=== PATIENT | male | born 1955 | race Caucasian/White ===

== ENCOUNTER 2020-06-26 15:26 | Outpatient (REF) | payer BC, SELFPAY ==
[2020-06-26 16:54] LABS: Hematocrit 43.3 % (42-52); Hemoglobin 14.7 g/dl (14.0-18.0); Mean Corpuscular HGB Conc 33.9 g/dl (31.0-36.0); Mean Corpuscular Hemoglobin 31.5 pg (27.0-33.0); Mean Corpuscular Volume 92.9 fL (80-98); Mean Platelet Volume 10.1 fL (9.4-12.4); Platelet Count 256 X10*3/uL (160-400); Red Blood Count 4.66 X10*6/uL (4.60-5.80)
[2020-06-26 17:19] LABS: Cholesterol 156 mg/dL; HDL Cholesterol 43 mg/dL; LDL Cholesterol Calculated 96 mg/dl; Triglycerides 89 mg/dL
[2020-06-26 17:22] LABS: Alanine Aminotransferase 28 U/L (0-40); Albumin Level 4.3 g/dL (3.5-5.0); Alkaline Phosphatase 76 U/L (39-117); Anion Gap 12 (12-20); Aspartate Amino Transferase 23 U/L (5-37); Bilirubin Direct 0.2 mg/dL (0.0-0.5); Bilirubin Total 0.3 mg/dL (0.0-1.0); Blood Urea Nitrogen 25 mg/dL (9-16); Calcium 9.6 mg/dL (8.4-10.2); Carbon Dioxide 28 mmol/L (22-29); Chloride 104 mmol/L (96-108); Estimated Glomerular Filt Rate > 60; Glucose Random 90 mg/dL (60-115); Potassium 4.3 mmol/l (3.3-5.1); Sodium 140 mmol/L (135-145); Total Protein 6.6 g/dL (6.5-8.0)
[2020-06-26 17:37] LABS: SARS COV2 PCR INHOUSE NEGATIVE (Negative)
== END 2020-06-26 15:27 | disposition home or self-care (01) ==
LOC: HO.LAB 15:26
PROVIDERS: PCP Internal Medicine; Visit Provider Internal Medicine
DX: Z00.00 Encounter for general adult medical examination without abnormal findings (principal); Z11.9 Encounter for screening for infectious and parasitic diseases, unspecified; Z20.828 Contact with and (suspected) exposure to other viral communicable diseases
CPT/HCPCS: 36415; 80048; 80061; 80076; 85027; 87635

== ENCOUNTER 2021-06-27 12:11 | Outpatient (REF) | payer MEDICARE, SELFPAY ==
[2021-06-27 13:42] LABS: Hematocrit 40.7 % (42-52); Hemoglobin 14.1 g/dl (14.0-18.0); Mean Corpuscular HGB Conc 34.6 g/dl (31.0-36.0); Mean Corpuscular Volume 92.5 fL (80-98); Mean Platelet Volume 10.2 fL (9.4-12.4); Platelet Count 235 X10*3/uL (160-400); Red Cell Distribution Width 12.7 % (11.0-16.0); White Blood Count 6.5 X10*3/uL (4.8-10.8)
[2021-06-27 13:46] LABS: Appearance Urine CLEAR; Color Urine YELLOW; Glucose Urine UA NEG (NEG); Leukocyte Esterase Urine NEG (NEG); Nitrite Urine NEG (NEG); Specific Gravity - Urine 1.025 (1.005-1.025); Urine Blood NEG (NEG); Urine Ketones NEG (NEG); Urine Protein NEG (NEG-TRACE)
[2021-06-27 13:53] LABS: Alanine Aminotransferase 40 U/L (0-40); Albumin Level 4.2 g/dL (3.5-5.0); Alkaline Phosphatase 87 U/L (39-117); Anion Gap 11 (12-20); Aspartate Amino Transferase 33 U/L (5-37); Bilirubin Direct 0.2 mg/dL (0.0-0.5); Bilirubin Total 0.5 mg/dL (0.0-1.0); Blood Urea Nitrogen 20 mg/dL (9-16); Calcium 9.2 mg/dL (8.4-10.2); Carbon Dioxide 28 mmol/L (22-29); Chloride 106 mmol/L (96-108); Cholesterol 142 mg/dL; Estimated Glomerular Filt Rate 59; Glucose Random 104 mg/dL (60-115); HDL Cholesterol 38 mg/dL; LDL Cholesterol Calculated 78 mg/dl; Potassium 4.3 mmol/L (3.3-5.1); Sodium 141 mmol/L (135-145); Total Protein 6.7 g/dL (6.5-8.0); Triglycerides 130 mg/dL
[2021-06-27 14:13] LABS: Prostate Specific Antigen Scr 0.74 ng/mL (<0.05-4.0); Thyroid Stimulating Hormone 0.56 uIU/mL (0.32-4.0)
== END 2021-06-27 12:12 | disposition home or self-care (01) ==
LOC: HO.LAB 12:11
PROVIDERS: PCP Internal Medicine; Visit Provider Internal Medicine
DX: Z00.00 Encounter for general adult medical examination without abnormal findings (principal); Z12.5 Encounter for screening for malignant neoplasm of prostate
CPT/HCPCS: 36415; 80048; 80061; 80076; 81003; 84153; 84443; 85027

== ENCOUNTER 2022-07-14 08:36 | Outpatient (REF) | payer MEDICARE, SELFPAY ==
[2022-07-14 09:09] LABS: Hematocrit 43.8 % (42.0-52.0); Hemoglobin 14.8 g/dl (14.0-18.0); Mean Corpuscular HGB Conc 33.8 g/dl (31.0-36.0); Mean Corpuscular Hemoglobin 31.4 pg (27.0-33.0); Mean Corpuscular Volume 92.8 fL (80.0-98.0); Mean Platelet Volume 9.8 fL (9.4-12.4); Platelet Count 249 X10*3/uL (160-400); Red Blood Count 4.72 X10*6/uL (4.60-5.80); Red Cell Distribution Width 12.2 % (11.0-16.0)
[2022-07-14 09:27] LABS: Alanine Aminotransferase 22 U/L (0-40); Albumin Level 4.3 g/dL (3.5-5.0); Alkaline Phosphatase 90 U/L (39-117); Anion Gap 14 (12-20); Aspartate Amino Transferase 20 U/L (5-37); Bilirubin Direct 0.2 mg/dL (0.0-0.5); Bilirubin Total 0.7 mg/dL (0.0-1.0); Blood Urea Nitrogen 16 mg/dL (9-16); Calcium 9.3 mg/dL (8.4-10.2); Carbon Dioxide 26 mmol/L (22-29); Chloride 106 mmol/L (96-108); Cholesterol 159 mg/dL; Estimated Glomerular Filt Rate > 60; Glucose Random 82 mg/dL (60-115); HDL Cholesterol 40 mg/dL; LDL Cholesterol Calculated 80 mg/dl; Potassium 4.4 mmol/L (3.3-5.1); Sodium 142 mmol/L (135-145); Total Protein 6.9 g/dL (6.5-8.0); Triglycerides 197 mg/dL
[2022-07-14 09:46] LABS: Appearance Urine Clear; Color Urine Yellow; Glucose Urine UA Negative (Negative); Leukocyte Esterase Urine Negative (Negative); Nitrite Urine Negative (Negative); Urine Blood Negative (Negative); Urine Ketones Negative (Negative); Urine Protein Negative (Neg-Trace)
[2022-07-14 09:48] LABS: Prostate Specific Antigen Scr 1.01 ng/mL (<0.05-4.0); Thyroid Stimulating Hormone 0.84 uIU/mL (0.32-4.0)
== END 2022-07-14 08:37 | disposition home or self-care (01) ==
LOC: HO.LAB 08:36
PROVIDERS: PCP Internal Medicine; Visit Provider Internal Medicine
DX: Z00.00 Encounter for general adult medical examination without abnormal findings (principal); Z12.5 Encounter for screening for malignant neoplasm of prostate
CPT/HCPCS: 36415; 80048; 80061; 80076; 81003; 84153; 84443; 85027

== ENCOUNTER 2023-07-23 08:34 | Outpatient (AMB) | payer MEDICARE, SELFPAY ==
--- NOTE | 2023-07-23 08:22 | MHC.PC.OV ---
Vital Signs 07/23/23 08:23 Height 5 ft 9 in Weight 222 lb BMI 32.8 BP 150/88 H Blood Pressure Location Lt brachial Position Sitting Pulse 78 Pulse Source Pulse Oximeter Pulse Oximetry (%) 98 Oxygen Delivery Method Room Air Intake Visit Reasons: Annual Physical Allergies No Known Allergies Allergy (Verified 07/23/23 08:55) Medication List - Last Reconciled 07/23/23 by Lavon Gtz MD enalapril maleate 20 mg (2 x 10 mg) PO DAILY Tobacco use date assessed: 07/23/23 Fall risk assessment: No Falls in past year Last assessed Fall Risk: 07/23/23 Dental Screening Dental Screen Date: 07/23/23 Did you have a dental visit in the last 12 months?: Yes Did you have a dental problem in the last 6 months where you did not have access to dental care?: No Was dental information given to patient?: Patient has dentist HPI Annual Physical HPI Details 67-year-old male presents to the office requesting an annual physical. [facility] Medical History (Updated 07/23/23 @ 09:04 by Lavon Gtz MD) Obesity (BMI 30.0-34.9) Essential hypertension Surgical History History of urinary retention History of colonoscopy Family History Father Cancer Brother Hodgkins disease Mother No problems noted. Social History Housing: House Alcohol intake: never Patient Tobacco Use Status: Never used Tobacco e-Cigarette/Vaping Use: Never Used Second Hand Smoke Exposure: No service: No Current occupational status: retired Cognitive needs: No Hearing needs: No Vision needs: Yes Questionnaire PHQ-9 Over the last 2 weeks, how often have you been bothered by any of the following problems? 1. Little interest or pleasure in doing things: not at all 2. Feeling down, depressed, or hopeless: not at all 3. Trouble falling or staying asleep, or sleeping too much: not at all 4. Feeling tired or having little energy: not at all 5. Poor appetite or overeating: not at all 6. Feeling bad about yourself - or that you are a failure or have let yourself or your family down: not at all 7. Trouble concentrating on things, such as reading the newspaper or watching television: not at all 8. Moving or speaking so slowly that other people could have noticed. Or the opposite - being so fidgety or restless that you have been moving around a lot more than usual: not at all 9. Thoughts that you would be better off or of hurting yourself in some way: not at all Total score: 0 Depression Screening Interpretation: Negative Depression Screening Done: Yes Source: Developed by Drs. Christopher Ojeda, Alena Aponte, Fabian Leigh and colleagues, with an educational kalpana from [employer]. Thrive Questionnaire Date Thrive assessed: 07/23/23 I am a: Patient What is your living situation today?: I have a steady place to live Within the past 12 months, did the food you bought not last and you didn't have the money to get more?: Never true Within the past 12 months, did you worry whether your food would run out before you got money to buy more?: Never true Do you have trouble paying for medicines?: No Do you have trouble getting transportation to medical appointments?: No Do you have trouble paying your heating and electricity bill?: No Do you have trouble taking care of your child, family member or friend?: No Do you have trouble with day-to-day activities such as bathing, preparing meals, shopping, managing finances, etc.?: No Are you currently unemployed and looking for a job?: No Are you interested in more education?: No Currently or been in a relationship where the following occur: no concerns reported AUDIT C Alcohol Use Questionnaire (AUDIT-C) 1. How often do you have a drink containing alcohol?: Never Total Score: 0 ORA-7 AMB Questionnaire ORA-7 Date ORA - 7 assessed: 07/23/23 Feeling nervous, anxious, or on edge: 0 = Not at all Not being able to stop or control worryin = Not at all Worrying too much about different things: 0 = Not at all Trouble relaxin = Not at all Being so restless that it is hard to sit still: 0 = Not at all Becoming easily annoyed or irritable: 0 = Not at all Feeling afraid as if something awful might happen: 0 = Not at all Total ORA-7 score (0-4 normal; 5-9 mild; 10-14 moderate; 15-21 severe): 0 Source: Developed by Drs. Christopher Ojeda, Alena Aponte, Fabian Leigh and colleagues, with an educational kalpana from [employer]. Physical exam (Primary Care) Vital Signs: Last Vital Signs Pulse 78 07/23/23 08:23 BP 150/88 H 07/23/23 08:23 Pulse Ox 98 07/23/23 08:23 Oxygen Delivery Method Room Air 07/23/23 08:23 Care Plan Goal for BP management: Elevated blood pressure noted. Medication added to the regimen. BMI result Body Mass Index 32.8 BMI Assessment/Plan discussion: High ( 1 lb per week weight loss suggested) BMI High, discussed plan: lifestyle, weight reduction and dietary Tobacco/Smoking Status: Tobacco use Status Tobacco use date assessed 07/23/23 07/23/23 08:34 Patient Tobacco Use Status Never used Tobacco 07/23/23 08:28 e-Cigarette/Vaping Use Never Used 07/23/23 08:28 PHQ-9: PHQ-9 Score PHQ-9: Total score 0 07/23/23 08:34 Depression Screening Interpretation: Negative Thrive Assessment: Date of Thrive Assessment Date Thrive assessed 07/23/23 07/23/23 08:34 Currently or been in a relationship where the following occur: no concerns reported Advance Care Planning discussion: Exists, not on file Date of discussion: 07/23/23 Who was present: Patient Forms completed: Health Care Proxy Time spent: 1-15 minutes, not on file Const General: cooperative and healthy appearing Nutritional Appearance: well nourished Orientation/consciousness: patient oriented x3 Limitations: no limitations HENMT Head: Yes normal to inspection Eyes General: appearance normal, both eyes and all related structures Neck Neck: Yes normal visual inspection Chest Chest palpation & inspection: normal palpation of entire chest wall Resp Effort & Inspection: normal respiratory effort Neuro General: patient oriented x3 Assessment and Plan Assessment & Plan (1) Essential hypertension: Code(s): I10 - Essential (primary) hypertension Plan: Hydrochlorothiazide added to the regimen. Blood work is ordered. Will call with results. Counseling on the importance of diet and exercise done. (2) Encounter for general adult medical examination without abnormal findings: Comment: Will call with results of blood work. Patient was advised the importance of diet and exercise. Code(s): Z00.00 - Encounter for general adult medical examination without abnormal findings (3) Obesity (BMI 30.0-34.9): Code(s): E66.9 - Obesity, unspecified Orders: Orders Lipid Panel Today I10 - Essential (primary) hypertension Liver Panel Today I10 - Essential (primary) hypertension UA and rflx microscopic Today I10 - Essential (primary) hypertension Basic Metabolic Panel Today I10 - Essential (primary) hypertension Complete Blood Count no Diff Today I10 - Essential (primary) hypertension Thyroid Stimulating Hormone Today I10 - Essential (primary) hypertension Prostate Specific Antigen Scr Today I10 - Essential (primary) hypertension Coding Level of Care Code Est Pt Prev Care >65y(20157) Diagnoses Essential hypertension I10 Encounter for general adult medical examination without abnormal findings Z00.00 Obesity (BMI 30.0-34.9) E66.9 Additional Codes Vital Signs *Quality* - Advance Care Planning discussion: Exists, not on file ([id number]) Vital Signs *Quality* - Time spent: 1-15 minutes, not on file ([id number])
[2023-07-23 08:23] VITALS: BP 150/88; PULSE 78; O2SAT 98; BMI 32.8
== END 2023-07-23 08:54 | disposition home or self-care (01) ==
PROVIDERS: PCP Internal Medicine; Visit Provider Internal Medicine
DX: Z00.00 Encounter for general adult medical examination without abnormal findings (principal); I10 Essential (primary) hypertension; E66.9 Obesity, unspecified; Z68.32 Body mass index [BMI] 32.0-32.9, adult
CPT/HCPCS: 1124F; 99397

== ENCOUNTER 2023-07-24 07:29 | Outpatient (REF) | payer MEDICARE, SELFPAY ==
[2023-07-24 10:35] LABS: Appearance Urine Clear; Color Urine Yellow; Glucose Urine UA Negative (Negative); Leukocyte Esterase Urine Negative (Negative); Nitrite Urine Negative (Negative); Specific Gravity - Urine 1.025 (1.005-1.025); Urine Blood Negative (Negative); Urine Ketones Trace mg/dL (Negative); Urine Protein Negative (Neg-Trace)
[2023-07-24 10:42] LABS: Hematocrit 43.5 % (42.0-52.0); Hemoglobin 14.7 g/dl (14.0-18.0); Mean Corpuscular HGB Conc 33.8 g/dl (31.0-36.0); Mean Corpuscular Hemoglobin 30.9 pg (27.0-33.0); Mean Corpuscular Volume 91.6 fL (80.0-98.0); Mean Platelet Volume 10.9 fL (9.4-12.4); Platelet Count 193 X10*3/uL (160-400); Red Blood Count 4.75 X10*6/uL (4.60-5.80); Red Cell Distribution Width 12.3 % (11.0-16.0); White Blood Count 6.8 X10*3/uL (4.8-10.8)
[2023-07-24 11:08] LABS: Alanine Aminotransferase 28 U/L (0-40); Albumin Level 4.3 g/dL (3.5-5.0); Alkaline Phosphatase 96 U/L (39-117); Anion Gap 8 (12-20); Aspartate Amino Transferase 36 U/L (5-37); Bilirubin Direct 0.3 mg/dL (0.0-0.5); Bilirubin Total 0.8 mg/dL (0.0-1.0); Blood Urea Nitrogen 23 mg/dL (9-16); Calcium 9.4 mg/dL (8.4-10.2); Carbon Dioxide 31 mmol/L (22-29); Chloride 105 mmol/L (96-108); Cholesterol 132 mg/dL (<200); Estimated Glomerular Filt Rate > 60; Glucose Random 89 mg/dL (60-115); HDL Cholesterol 35 mg/dL (>40); LDL Cholesterol Calculated 85 mg/dL (<100); Potassium 4.1 mmol/L (3.3-5.1); Sodium 140 mmol/L (135-145); Total Protein 6.9 g/dL (6.5-8.0); Triglycerides 64 mg/dL (<150)
[2023-07-24 11:22] LABS: Prostate Specific Antigen Scr 0.96 ng/mL (<0.05-4.0)
== END 2023-07-24 07:30 | disposition home or self-care (01) ==
LOC: HO.10HDL 07:29
PROVIDERS: Visit Provider Internal Medicine
DX: Z12.5 Encounter for screening for malignant neoplasm of prostate (principal); I10 Essential (primary) hypertension
CPT/HCPCS: 36415; 80048; 80061; 80076; 81003; 84153; 84443; 85027

== ENCOUNTER 2024-07-28 09:28 | Outpatient (AMB) | payer MEDICARE, SELFPAY ==
--- NOTE | 2024-07-28 09:38 | A.OFFPC_ITS ---
Vital Signs 07/28/24 09:40 Height 5 ft 9 in Weight 228 lb 8 oz BMI 33.7 BP 130/80 Blood Pressure Location Lt brachial Position Sitting Pulse 60 Pulse Source Pulse Oximeter Pulse Oximetry (%) 95 Oxygen Delivery Method Room Air Intake Visit Reasons: Annual Exam Intake Note: Patient is here today for a physical. 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: Not Required per policy Accompanied by: Self / Same As Patient Allergies No Known Allergies Allergy (Verified 08/04/24 16:21) Medication List - Last Reconciled 08/04/24 by Lavon Gtz MD enalapril maleate 20 mg (2 x 10 mg) PO DAILY hydrochlorothiazide 25 mg PO DAILY Tobacco use date assessed: 07/28/24 Fall risk assessment: No Falls in past year Last assessed Fall Risk: 07/28/24 Dental Screening Dental Screen Date: 07/28/24 Did you have a dental visit in the last 12 months?: Yes Did you have a dental problem in the last 6 months where you did not have access to dental care?: No Was dental information given to patient?: Patient has dentist HPI Annual Exam HPI Details 68-year-old male presents to the office requesting an annual physical. [facility] Medical History Obesity (BMI 30.0-34.9) Essential hypertension Surgical History History of urinary retention History of colonoscopy Family History Father Cancer Brother Hodgkins disease Mother No problems noted. Social History Housing: House Alcohol intake: never Patient Tobacco Use Status: Never used Tobacco e-Cigarette/Vaping Use: Never Used Second Hand Smoke Exposure: No service: No Current occupational status: retired Cognitive needs: No Hearing needs: No Vision needs: Yes (Glasses) Questionnaire PHQ-9 Over the last 2 weeks, how often have you been bothered by any of the following problems? 1. Little interest or pleasure in doing things: not at all 2. Feeling down, depressed, or hopeless: not at all 3. Trouble falling or staying asleep, or sleeping too much: not at all 4. Feeling tired or having little energy: several days 5. Poor appetite or overeating: not at all 6. Feeling bad about yourself - or that you are a failure or have let yourself or your family down: not at all 7. Trouble concentrating on things, such as reading the newspaper or watching television: not at all 8. Moving or speaking so slowly that other people could have noticed. Or the opposite - being so fidgety or restless that you have been moving around a lot more than usual: not at all 9. Thoughts that you would be better off or of hurting yourself in some way: not at all Total score: 1 Depression Screening Interpretation: Positive Depression Screening Done: Yes Source: Developed by Drs. Christopher Ojeda, Alena Aponte, Fabian Leigh and colleagues, with an educational kalpana from [employer]. Thrive Questionnaire Date Thrive assessed: 07/28/24 I am a: Patient What is your living situation today?: I have a steady place to live Within the past 12 months, did the food you bought not last and you didn't have the money to get more?: Never true Within the past 12 months, did you worry whether your food would run out before you got money to buy more?: Never true Do you have trouble paying for medicines?: No Do you have trouble getting transportation to medical appointments?: No Do you have trouble paying your heating and electricity bill?: No Do you have trouble taking care of your child, family member or friend?: I choose not to answer this question Do you have trouble with day-to-day activities such as bathing, preparing meals, shopping, managing finances, etc.?: No Are you currently unemployed and looking for a job?: I choose not to answer this question Are you interested in more education?: No Please select the resources that you would like help with: None Currently or been in a relationship where the following occur: I choose not to answer THRIVE Score: 0 AUDIT C Alcohol Use Questionnaire (AUDIT-C) 1. How often do you have a drink containing alcohol?: Never Total Score: 0 ORA-7 AMB Questionnaire ORA-7 Date ORA - 7 assessed: 07/28/24 Feeling nervous, anxious, or on edge: 0 = Not at all Not being able to stop or control worryin = Not at all Worrying too much about different things: 0 = Not at all Trouble relaxin = Not at all Being so restless that it is hard to sit still: 0 = Not at all Becoming easily annoyed or irritable: 0 = Not at all Feeling afraid as if something awful might happen: 0 = Not at all Total ORA-7 score (0-4 normal; 5-9 mild; 10-14 moderate; 15-21 severe): 0 Source: Developed by Drs. Christopher Ojeda, Alena Aponte, Fabian Leigh and colleagues, with an educational kalpana from [employer]. Physical exam (Primary Care) Vital Signs: Last Vital Signs Pulse 60 07/28/24 09:40 BP 130/80 07/28/24 09:40 Pulse Ox 95 07/28/24 09:40 Oxygen Delivery Method Room Air 07/28/24 09:40 BMI result Body Mass Index 33.7 Tobacco/Smoking Status: Tobacco use Status Tobacco use date assessed 07/28/24 07/28/24 09:45 Patient Tobacco Use Status Never used Tobacco 07/28/24 09:45 e-Cigarette/Vaping Use Never Used 07/28/24 09:45 PHQ-9: PHQ-9 Score PHQ-9: Total score 1 07/28/24 09:55 Depression Screening Interpretation: Positive Thrive Assessment: Date of Thrive Assessment Date Thrive assessed 07/28/24 07/28/24 09:45 Currently or been in a relationship where the following occur: I choose not to answer Const General: cooperative and healthy appearing Nutritional Appearance: well nourished Orientation/consciousness: patient oriented x3 Limitations: no limitations HENMT Head: Yes normal to inspection Eyes General: appearance normal, both eyes and all related structures Neck Neck: Yes normal visual inspection Chest Chest palpation & inspection: normal palpation of entire chest wall Resp Effort & Inspection: normal respiratory effort Neuro General: patient oriented x3 Office Procedures Flu Questionnaire Does the patient have a severe egg allergy?: No Does the patient have severe life threatening allergies?: No Does the patient have a fever or illness today?: No Has the patient ever had Guillain-Maxatawny Syndrome?: No Has the patient ever had any past reaction to a flu shot?: No Immunizations Fluarix Triv [id number] (PF) 45 mcg (15 mcg x 3)/0.5 mL IM syringe Performing Provider: Lavon Gtz MD [place] [facility] Administered by: Kathy Padilla LPN on 07/28/24 09:55 Dose Route Admin Location Dispensed Lot Number Expiration Date ND Offset Duplicating Machine Operator 0.5 mL IM Right Deltoid 0.5 mL [id number] 03/06/25 [id number] Pathagility VIS Given Date VIS Provided VIS Publication Date 07/28/24 Single Vaccine 21 Eligibility Eligibility Date Funding Source Not [facility] Eligible 07/28/24 Private Coding Level of Care Code Est Pt Prev Care >65y(74780) Diagnoses Essential hypertension I10 Obesity (BMI 30.0-34.9) E66.9 Encounter for general adult medical examination without abnormal findings Z00.00 Assessment & Plan Assessment & Plan (1) Essential hypertension: Code(s): I10 - Essential (primary) hypertension Category: Medical Plan: Blood pressure is in range. (2) Obesity (BMI 30.0-34.9): Code(s): E66.9 - Obesity, unspecified Category: Medical Plan: As below. (3) Encounter for general adult medical examination without abnormal findings: Comment: Will call with results of blood work. Patient was advised the importance of diet and exercise. Code(s): Z00.00 - Encounter for general adult medical examination without abnormal findings Category: Medical Plan: As in the comment section. Orders: Orders Influenza [id number] Immunization 07/28/24 Z23 - Encounter for immunization
[2024-07-28 09:40] VITALS: BP 130/80; PULSE 60; O2SAT 95; BMI 33.7
== END 2024-07-28 10:08 | disposition home or self-care (01) ==
PROVIDERS: PCP Internal Medicine; Visit Provider Internal Medicine
DX: Z00.00 Encounter for general adult medical examination without abnormal findings (principal); I10 Essential (primary) hypertension; E66.9 Obesity, unspecified; Z68.33 Body mass index [BMI] 33.0-33.9, adult

== ENCOUNTER → 2024-07-28 09:28 | Outpatient (BNVA) | payer MEDICARE, SELFPAY | PROVIDERS: PCP Internal Medicine; Visit Provider Internal Medicine | DX: Z00.00 Encounter for general adult medical examination without abnormal findings (principal); Z23 Encounter for immunization; I10 Essential (primary) hypertension; E66.9 Obesity, unspecified; Z68.33 Body mass index [BMI] 33.0-33.9, adult; Z71.3 Dietary counseling and surveillance | CPT/HCPCS: 90471; 90656; 96127; 99397 ==

== ENCOUNTER 2024-09-10 08:02 | Outpatient (REF) | payer SELFPAY ==
[2024-09-10 08:38] LABS: Hemoglobin 14.8 g/dl (14.0-18.0); Mean Corpuscular HGB Conc 34.4 g/dl (31.0-36.0); Mean Corpuscular Hemoglobin 31.8 pg (27.0-33.0); Mean Corpuscular Volume 92.3 fL (80.0-98.0); Mean Platelet Volume 9.6 fL (9.4-12.4); Platelet Count 252 X10*3/uL (160-400); Red Blood Count 4.66 X10*6/uL (4.60-5.80); Red Cell Distribution Width 12.8 % (11.0-16.0); White Blood Count 6.8 X10*3/uL (4.8-10.8)
[2024-09-10 09:16] LABS: Alanine Aminotransferase 28 U/L (0-40); Alkaline Phosphatase 57 U/L (39-117); Anion Gap 10 (12-20); Aspartate Amino Transferase 22 U/L (5-37); Bilirubin Direct 0.2 mg/dL (0.0-0.5); Bilirubin Total 0.7 mg/dL (0.0-1.0); Blood Urea Nitrogen 25 mg/dL (9-16); Calcium 9.3 mg/dL (8.4-10.2); Carbon Dioxide 31 mmol/L (22-29); Chloride 105 mmol/L (96-108); Cholesterol 140 mg/dL (<200); Estimated Glomerular Filt Rate 58; Glucose Random 99 mg/dL (60-115); HDL Cholesterol 38 mg/dL (>40); LDL Cholesterol Calculated 81 mg/dL (<100); Potassium 3.7 mmol/L (3.3-5.1); Sodium 142 mmol/L (135-145); Total Protein 6.7 g/dL (6.5-8.0); Triglycerides 108 mg/dL (<150)
[2024-09-10 09:30] LABS: Thyroid Stimulating Hormone 0.79 uIU/mL (0.32-4.0)
== END 2024-09-10 08:03 | disposition home or self-care (01) ==
LOC: HO.LAB 08:02
PROVIDERS: PCP Internal Medicine; Visit Provider Internal Medicine
DX: I10 Essential (primary) hypertension (principal)
CPT/HCPCS: 36415; 80048; 80061; 80076; 84443; 85027

== ENCOUNTER 2024-09-12 15:25 | Outpatient (REF) | payer BC, SELFPAY ==
[2024-09-12 15:32] LABS: Appearance Urine Clear; Color Urine Dark Yellow; Glucose Urine UA Negative (Negative); Leukocyte Esterase Urine Negative (Negative); Nitrite Urine Negative (Negative); PH 5.5 (5.0-9.0); Specific Gravity - Urine 1.025 (1.005-1.025); Urine Blood Negative (Negative); Urine Ketones Trace mg/dL (Negative); Urine Protein Negative (Neg-Trace)
== END 2024-09-12 15:26 | disposition home or self-care (01) ==
LOC: HO.LNP 15:25
PROVIDERS: Visit Provider Internal Medicine
DX: I10 Essential (primary) hypertension (principal)
CPT/HCPCS: 81003

== ENCOUNTER 2025-01-26 08:55 | Outpatient (AMB) | payer BC, SELFPAY ==
--- NOTE | 2025-01-26 09:08 | MHC.PC.OV ---
Vital Signs 01/26/25 09:09 Height 5 ft 9 in Weight 233 lb 2 oz BMI 34.4 BP 130/82 Blood Pressure Location Lt brachial Position Sitting Pulse 64 Pulse Source Pulse Oximeter Temp 96.9 F Temp Source Temporal Artery Scan Pulse Oximetry (%) 98 Oxygen Delivery Method Room Air Intake Visit Reasons: 6mth f/u Intake Note: Patient is here to follow up on HTN. 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 per policy Accompanied by: Self / Same As Patient Allergies No Known Allergies Allergy (Verified 01/26/25 09:09) Tobacco use date assessed: 01/26/25 Fall risk assessment: No Falls in past year Last assessed Fall Risk: 01/26/25 Dental Screening Dental Screen Date: 01/26/25 Did you have a dental visit in the last 12 months?: Yes Did you have a dental problem in the last 6 months where you did not have access to dental care?: No Was dental information given to patient?: Patient has dentist [facility] Medical History Obesity (BMI 30.0-34.9) Essential hypertension Surgical History History of urinary retention History of colonoscopy (~02/13/17) Family History Father Cancer Brother Hodgkins disease Mother No problems noted. Social History Housing: House Alcohol intake: never Patient Tobacco Use Status: Never used Tobacco e-Cigarette/Vaping Use: Never Used Second Hand Smoke Exposure: No service: No Current occupational status: retired Cognitive needs: No Hearing needs: No Vision needs: Yes (Glasses) Questionnaire PHQ-9 Over the last 2 weeks, how often have you been bothered by any of the following problems? 1. Little interest or pleasure in doing things: not at all 2. Feeling down, depressed, or hopeless: not at all 3. Trouble falling or staying asleep, or sleeping too much: not at all 4. Feeling tired or having little energy: not at all 5. Poor appetite or overeating: not at all 6. Feeling bad about yourself - or that you are a failure or have let yourself or your family down: not at all 7. Trouble concentrating on things, such as reading the newspaper or watching television: not at all 8. Moving or speaking so slowly that other people could have noticed. Or the opposite - being so fidgety or restless that you have been moving around a lot more than usual: not at all 9. Thoughts that you would be better off or of hurting yourself in some way: not at all Total score: 0 Depression Screening Interpretation: Negative Depression Screening Done: Yes Source: Developed by Drs. Christopher Ojeda, Alena Aponte, Fabian Leigh and colleagues, with an educational kalpana from [employer]. Thrive Questionnaire Date Thrive assessed: 01/26/25 I am a: Patient What is your living situation today?: I have a steady place to live Within the past 12 months, did the food you bought not last and you didn't have the money to get more?: Never true Within the past 12 months, did you worry whether your food would run out before you got money to buy more?: Never true Do you have trouble paying for medicines?: No Do you have trouble getting transportation to medical appointments?: No Do you have trouble paying your heating and electricity bill?: No Do you have trouble taking care of your child, family member or friend?: I choose not to answer this question Do you have trouble with day-to-day activities such as bathing, preparing meals, shopping, managing finances, etc.?: No Are you currently unemployed and looking for a job?: I choose not to answer this question Are you interested in more education?: No Please select the resources that you would like help with: None Currently or been in a relationship where the following occur: No concerns reported THRIVE Score: 0 AUDIT C Alcohol Use Questionnaire (AUDIT-C) 1. How often do you have a drink containing alcohol?: Never Total Score: 0 ORA-7 AMB Questionnaire ORA-7 Date ORA - 7 assessed: 01/26/25 Feeling nervous, anxious, or on edge: 0 = Not at all Not being able to stop or control worryin = Not at all Worrying too much about different things: 0 = Not at all Trouble relaxin = Not at all Being so restless that it is hard to sit still: 0 = Not at all Becoming easily annoyed or irritable: 0 = Not at all Feeling afraid as if something awful might happen: 0 = Not at all Total ORA-7 score (0-4 normal; 5-9 mild; 10-14 moderate; 15-21 severe): 0 Source: Developed by Drs. Christopher Ojeda, Alena Aponte, Fabian Leigh and colleagues, with an educational kalpana from [employer]. Physical exam (Primary Care) Vital Signs: Last Vital Signs Temp 96.9 F 01/26/25 09:09 Pulse 64 01/26/25 09:09 BP 130/82 01/26/25 09:09 Pulse Ox 98 01/26/25 09:09 Oxygen Delivery Method Room Air 01/26/25 09:09 BMI result Body Mass Index 34.4 Tobacco/Smoking Status: Tobacco use Status Tobacco use date assessed 01/26/25 01/26/25 09:14 Patient Tobacco Use Status Never used Tobacco 01/26/25 09:14 e-Cigarette/Vaping Use Never Used 01/26/25 09:14 PHQ-9: PHQ-9 Score PHQ-9: Total score 0 01/26/25 09:14 Depression Screening Interpretation: Negative Thrive Assessment: Date of Thrive Assessment Date Thrive assessed 01/26/25 01/26/25 09:14 Currently or been in a relationship where the following occur: No concerns reported Coding Level of Care Code Est Pt Level 4 (71939) Complex EM visit Add On G2211 Diagnoses Essential hypertension I10 Assessment & Plan Assessment & Plan (1) Essential hypertension: Code(s): I10 - Essential (primary) hypertension Category: Medical Plan: BP is in range. Continue current medications. Plan History of Present Illness The patient is a 69 year old male presenting for a wellness visit, focusing on screening for colon cancer. He prefers non-invasive testing methods due to potential risks associated with traditional colonoscopy, as noted during past procedures at ages 49 and 59. The patient has no family history of colorectal cancer and discussed using the Cologuard test for routine screening. Bijana, a trusted medical acquaintance, recommended this method, emphasizing ease and reduced risk. The patient reports having had cataract surgery on his left eye and expects a gradual progression that remains under control with slow bilateral development. He has been managed through specialized facilities in [place]. He is also monitored for possible glaucoma following an outpatient operation to prevent pressure-related complications, and reports no significant visual impairment at present. Hypertension is effectively managed through current medication protocols, with routine lab work confirming stable vitals. Financial implications of his treatment regimen were highlighted, particularly about skincare recommendations switching from cetalophil to a cost-effective equivalent, reflecting broader concerns of insurance coverage limitations for medications and treatments noted in his social interactions. Social History - Housing: Lives at home and was visited by healthcare personnel for routine checkups. - Insurance: Switched to [employer]; partial coverage noted, leading to [id number] expenses for blood work. - Activity/Mobility: Drives occasionally, avoids nighttime driving, indicating adequate though cautious engagement in daily activities. - Social Support: Interaction with healthcare providers outside the clinic setting for advice and monitoring, showcasing a support network. Review of Systems - Ophthalmologic: Reports slow-progressing cataracts, denies visual disturbances. - Cardiovascular: Denies shortness of breath, chest pain; reports maintaining controlled blood pressure. - Gastrointestinal: Denies abdominal pain or recent changes in bowel habits. - Neurologic: Reports spousal input regarding cognitive clarity, no substantial decline noted personally. - Dermatologic: Reports receipt of advice on skincare product choice for foot care. Physical Exam General: Cooperative and healthy appearing Nutritional Appearance: Well nourished Orientation/consciousness: Patient oriented x3 Limitations: No limitations Head: Normal to inspection General: Appearance normal, both eyes and all related structures Neck: Normal visual inspection Chest: Normal palpation of entire chest wall Respiratory: N ormal respiratory effort Neurology: Patient oriented x3, no halos or anything at all. Results - Labs: Routine blood work compliant with recent testing. - Tests: Colonoscopy (historical at age 49 and 59), Cologuard to be initiated. Plan 1. Cataract, Initial - Regular follow-up with ophthalmology to monitor progression. 2. Suspected Open-Angle Glaucoma - Continued monitoring and management as per specialist recommendations. 3. Essential Hypertension - Adherence to current medication; address any insurance coverage issues for future lab work. 4. Age-Related Macular Degeneration - Ongoing surveillance with resin shaver. 5. Cognitive Decline - Vigilant observation and reassessment; follow-up if any signs present. Discussion Notes During today's visit, I engaged in a discussion with the patient regarding his preference for non-invasive colon cancer screening, resulting in the selection of Cologuard as an appropriate alternative to colonoscopy. I advised the patient on the implications of switching dermatologic care products due to cost concerns. His financial issues surrounding the extent of insurance coverage were acknowledged, particularly with regards to ongoing blood work. We also addressed his ophthalmological history, including cataract intervention and potential glaucoma. Follow-up was set to monitor for potential cognitive impairments. Routine follow-ups with specialists were emphasized, with initiatives noted for health maintenance and insurance policy review, ensuring alignment with the patient's medical trajectory. Patient Instructions - Complete the Cologuard test as recommended. - Continue current hypertensive medication regimen. - Monitor any changes in vision and follow up with an resin shaver regularly. - Maintain regular blood work to ensure overall wellbeing. - Use [id number] alternatives for foot care as discussed. - Contact healthcare provider if experiencing new or worsening symptoms, particularly vision or cognition related. Orders: Referrals Cologuard Test Z12.11 - Encounter for screening for malignant neoplasm of colon
[2025-01-26 09:09] VITALS: BP 130/82; PULSE 64; TEMP 36.1; O2SAT 98; BMI 34.4
== END 2025-01-26 14:34 | disposition home or self-care (01) ==
LOC: HO.HMCH 08:56
PROVIDERS: PCP Internal Medicine; Visit Provider Internal Medicine
DX: I10 Essential (primary) hypertension (principal)

== ENCOUNTER → 2025-01-26 08:55 | Outpatient (BNVA) | payer BC, SELFPAY | PROVIDERS: PCP Internal Medicine; Visit Provider Internal Medicine ==

== ENCOUNTER 2025-08-10 09:05 | Outpatient (AMB) | payer BC, SELFPAY ==
[2025-08-10 09:19] VITALS: BP 120/66; PULSE 53; TEMP 36.2; O2SAT 92; BMI 33.8
--- NOTE | 2025-08-10 09:19 | A.OFFPC_ITS ---
Vital Signs 08/10/25 09:19 Height 5 ft 9 in Weight 229 lb 2 oz BMI 33.8 BP 120/66 Blood Pressure Location Lt brachial Position Sitting Pulse 53 Pulse Source Pulse Oximeter Temp 97.1 F Temp Source Temporal Artery Scan Pulse Oximetry (%) 92 Oxygen Delivery Method Room Air Intake Visit Reasons: Annual exam Intake Note: Patient is here today for a physical. Jd Edwards Consultant Required: No Grounds Maintenance Supervisor: Not Required per policy Accompanied by: Self / Same As Patient Allergies No Known Allergies Allergy (Verified 08/10/25 09:19) Tobacco use date assessed: 08/10/25 Fall risk assessment: No Falls in past year Last assessed Fall Risk: 08/10/25 Dental Screening Dental Screen Date: 01/26/25 HPI HPI Comments History of Present Illness Details History of Present Illness - The patient is a 69 year old male pres enting for an annual physical examination and blood pressure management. - He has a history of hypertension, whic h is managed with two medications, enalapril and hydrochlorothiazide, taken as three pills total, and his blood pressure is well-controlled. - He also takes a vitamin supplement and CoQ10. - The patient has cataracts that are slo w-growing and do not currently require surgery. - He previously underwent an eye procedu re for a drainage issue. - For health maintenance, his colon [facility] screening with a stool-based test was negative. - His last blood work was in September and was negative. - Regarding his weight, he reports a cur rent weight of 226 pounds and has recently started a diet program involving five small meals a day with the goal of reaching an ideal weight of 190 pounds. - He remains physically active with [employer], bike riding, and [employer]. Social History - Employment: The patient is retired. - Exercise: He is active with [employer], bike riding, and shoveling snow. - Nutrition: The patient recently starte d a diet program consisting of up to five small meals a day to facilitate weight loss. Results - Screening tests: A previously complete d stool-based colon cancer screening was negative. - Labs: Previous blood work from September was all negative. [facility] Medical History Obesity (BMI 30.0-34.9) Essential hypertension Surgical History History of urinary retention History of colonoscopy (~02/13/17) Family History Father Cancer Brother Hodgkins disease Mother No problems noted. Social History Housing: House Alcohol intake: never Patient Tobacco Use Status: Never used Tobacco e-Cigarette/Vaping Use: Never Used Second Hand Smoke Exposure: No service: No Current occupational status: retired Cognitive needs: No Hearing needs: No Vision needs: Yes (Glasses) Questionnaire Thrive Questionnaire Date Thrive assessed: 01/26/25 I am a: Patient What is your living situation today?: I have a steady place to live Within the past 12 months, did the food you bought not last and you didn't have the money to get more?: Never true Within the past 12 months, did you worry whether your food would run out before you got money to buy more?: Never true Do you have trouble paying for medicines?: No Do you have trouble getting transportation to medical appointments?: No Do you have trouble paying your heating and electricity bill?: No Do you have trouble taking care of your child, family member or friend?: I choose not to answer this question Do you have trouble with day-to-day activities such as bathing, preparing meals, shopping, managing finances, etc.?: No Are you currently unemployed and looking for a job?: I choose not to answer this question Are you interested in more education?: No Please select the resources that you would like help with: None Currently or been in a relationship where the following occur: No concerns reported THRIVE Score: 0 ORA-7 AMB Questionnaire ORA-7 Date ORA - 7 assessed: 01/26/25 Source: Developed by Drs. Christopher Ojeda, Alena Aponte, Fabian Leigh and colleagues, with an educational kalpana from [facility] Review of Systems Narrative Review of Systems - Eyes: Reports having slow-growing cataracts. - Neurological: Reports having shaky hands but denies having Parkinson's d isease. - Gastrointestinal: Denies abdominal pain. Physical exam (Primary Care) Vital Signs: Last Vital Signs Temp 97.1 F 08/10/25 09:19 Pulse 53 08/10/25 09:19 BP 120/66 08/10/25 09:19 Pulse Ox 92 08/10/25 09:19 Oxygen Delivery Method Room Air 08/10/25 09:19 BMI result Body Mass Index 33.8 Tobacco/Smoking Status: Tobacco use Status Tobacco use date assessed 08/10/25 08/10/25 09:25 Patient Tobacco Use Status Never used Tobacco 08/10/25 09:25 e-Cigarette/Vaping Use Never Used 08/10/25 09:25 Thrive Assessment: Date of Thrive Assessment Date Thrive assessed 01/26/25 08/10/25 09:25 Currently or been in a relationship where the following occur: No concerns reported Narrative Physical Exam General: Appearance normal, both eyes and all related structures Nutritional Appearance: Well nourished, current weight 230 lbs, ideal body weight around 190 lbs Orientation/consciousness: Patient oriented x3 Limitations: No limitations Head: Normal to inspection Neck: Normal visual inspection Chest: Normal palpation of entire chest wall Respiratory: Normal respiratory effort Neurology: Patient oriented x3, hands are shaky but no Parkinson's Office Procedures Flu Questionnaire Does the patient have a severe egg allergy?: No Does the patient have severe life threatening allergies?: No Does the patient have a fever or illness today?: No Has the patient ever had Guillain-[place] Syndrome?: No Has the patient ever had any past reaction to a flu shot?: No Immunizations Fluarix [id number] (PF) 45 mcg (15 mcg x 3)/0.5 mL IM syringe Performing Provider: Lavon Gtz MD [facility] [place] [facility] Administered by: Kathy Padilla LPN on 08/10/25 09:56 Dose Route Admin Location Dispensed Lot Number Expiration Date [facility] Account Support Manager 0.5 mL IM Right Deltoid 0.5 mL [id number] 03/06/26 [id number] [employer] Pump [employer] VIS Given Date VIS Provided VIS Publication Date 08/10/25 Single Vaccine 24 Eligibility Eligibility Date Funding Source Not [facility] Eligible 08/10/25 Private Coding Level of Care Code Est Pt Prev Care >65y(28386) Complex visit Add On G2211 Diagnoses Essential hypertension I10 Annual physical exam Z00.00 Assessment & Plan Assessment & Plan (1) Essential hypertension: Code(s): I10 - Essential (primary) hypertension Category: Medical (2) Annual physical exam: Code(s): Z00.00 - Encounter for general adult medical examination without abnormal findings Plan Plan - Hypertension: Continue current medications, including enalapril and hydrochlorothiazide, at the same dosage, as his blood pressure is well controlled. - Health Maintenance: Administer influenza vaccine in the office today. - Diagnostics: Order fasting lab work; the order is electronic and the patient can go to the lab facility in [place] or [place]. - Follow-up: Schedule a follow-up visit in six months. Discussion Notes I advised the patient to continue his current blood pressure medications as his readings are well-controlled. We discussed his lifestyle, including his physical activities and new diet plan for weight management. I informed him that I will place an electronic order for fasting blood work, which he can get done at a local lab. The patient consented to receiving the flu shot during today's visit. A follow-up is scheduled in six months. Patient Instructions - Continue taking your blood pressure medications as you currently do. - You will receive a flu shot today before you leave. - Please go for fasting blood work; you should not eat or drink anything except water after midnight the night before the test. - The lab order is electronic, so you can go to the lab in [place] or [place] without any paperwork. - Please schedule a follow-up appointment to see me in six months. Orders: Orders Liver Panel Today I10 - Essential (primary) hypertension Basic Metabolic Panel Today I10 - Essential (primary) hypertension Complete Blood Count no Diff Today I10 - Essential (primary) hypertension Lipid Panel Today I10 - Essential (primary) hypertension Thyroid Stimulating Hormone Today I10 - Essential (primary) hypertension Prostate Specific Antigen Scr Today I10 - Essential (primary) hypertension UA and rflx microscopic Today I10 - Essential (primary) hypertension Influenza [id number] Immunization Today Z23 - Encounter for immunization
== END 2025-08-10 09:57 | disposition home or self-care (01) ==
LOC: HO.HMCH 09:06
PROVIDERS: PCP Internal Medicine; Visit Provider Internal Medicine
DX: Z00.00 Encounter for general adult medical examination without abnormal findings (principal); I10 Essential (primary) hypertension; Z23 Encounter for immunization

== ENCOUNTER → 2025-08-10 09:05 | Outpatient (BNVA) | payer BC, SELFPAY | PROVIDERS: PCP Internal Medicine; Visit Provider Internal Medicine | DX: Z00.00 Encounter for general adult medical examination without abnormal findings (principal); Z23 Encounter for immunization; I10 Essential (primary) hypertension | CPT/HCPCS: 90471; 90656 ==